=== PATIENT | male | born 1950 | race Caucasian/White ===

== ENCOUNTER 2019-12-07 14:31 | Emergency (ER) | payer BC ==
[2019-12-07 14:43] VITALS: BMI 29.0
[2019-12-07] MEDS ORDERED: SODIUM CHLORIDE 1,000 ML IV STA (14:47)
--- NOTE | 2019-12-07 14:47 | PDOC ---
Rapid Medical Evaluation Chief Complaint: Pain Time Seen by Provider: 12/07/19 14:46 Medical Evaluation: Allergies Allergy/AdvReac Type Severity Reaction Status Date / Time No Known Allergies Allergy Verified 12/07/19 14:43 Vital Signs Temp Pulse Resp BP Pulse Ox 98.8 F 67 18 140/79 97 12/07/19 14:40 12/07/19 14:40 12/07/19 14:40 12/07/19 14:40 12/07/19 14:40 12/07/19 14:46 I have performed a brief in-person evaluation of this patient. CC: sudden onset RLQ pain PE: RLQ tenderness. No guarding. Orders: labs, urine, CTAP Patient will proceed to ED for further evaluation. Discharge Disposition - Diagnosis RLQ abdominal pain - Referrals - Patient Instructions - Post Discharge Activity
[2019-12-07] MEDS ORDERED: ACETAMINOPHEN 1000 MG/100 ML VIAL (NON FORMULARY) IVPB ONE (14:48)
[2019-12-07 15:24] LABS: BASO % 0.8 % (0-2.0); EOS % 2.4 % (0-4.5); HEMATOCRIT 48.9 % (35.4-49); LYMPH % 19.6 % (8-40); MCH 30.1 pg (25.7-33.7); MCHC 32.8 g/dl (32.0-35.9); MEAN CELL VOLUME 91.9 fl (80-96); MEAN PLT VOLUME 8.9 fl (7.5-11.1); MONO % 7.1 % (3.8-10.2); NEUT % 70.1 % (42.8-82.8); PLATELET COUNT 198 K/MM3 (134-434); RBC 5.32 M/mm3 (4.00-5.60); RDW 14.8 % (11.9-15.9); URINE APPEARANCE CLEAR; URINE BILIRUBIN NEGATIVE (NEGATIVE); URINE COLOR YELLOW; URINE GLUCOSE (UA) NEGATIVE (NEGATIVE); URINE KETONE NEGATIVE (NEGATIVE); URINE LEUK ESTERASE NEGATIVE (NEGATIVE); URINE NITRITE NEGATIVE (NEGATIVE); URINE PROTEIN NEGATIVE (NEGATIVE); URINE UROBILINOGEN 0.2 mg/dL (0.2-1.0); WHITE BLOOD COUNT 11.2 K/mm3 (4.0-10.0)
[2019-12-07 15:51] LABS: ALBUMIN 3.9 g/dl (3.4-5.0); BILIRUBIN,TOTAL 0.9 mg/dL (0.2-1); BLOOD UREA NITROGEN 16.8 mg/dL (7-18); CALCIUM 9.5 mg/dL (8.5-10.1); CREATININE 0.9 mg/dL (0.55-1.3); POTASSIUM 4.2 mmol/L (3.5-5.1); TOT PROT 7.5 g/dl (6.4-8.2)
[2019-12-07] MEDS ORDERED: ACETAMINOPHEN INJECTION 100 ML IVPB ONE (16:05)
--- NOTE | 2019-12-07 16:18 | PDOC ---
History of Present Illness - General Chief Complaint: Pain Stated Complaint: LOWER ABD PAIN Time Seen by Provider: 12/07/19 14:46 - History of Present Illness Initial Comments: 12/07/19 17:00 HPI: This is a 69 y/o male with no reported PMH and a hx of hernia surgery presenting to the ED because of right lower abdominal pain this morning. [place] the [place] and he reported a sharp 7/10 non-radiating pain along with diaphoresis. He has never had that pain before, and it passed quickly. He denied any accompanying chest pain, nausea, vomiting, or sob. He denies any hematuria or blood in his stool. ROS: GENERAL/CONSTITUTIONAL: No fever/chills. No weakness. HEAD, EYES, EARS, NOSE AND THROAT: No change in vision. No sore throat. CARDIOVASCULAR: No chest pain or shortness of breath. RESPIRATORY: No cough, wheezing, or hemoptysis. GASTROINTESTINAL: No nausea, vomiting, diarrhea or constipation. Denies blood in stool. GENITOURINARY: No dysuria, frequency, or change in urination. Denies hematuria. MUSCULOSKELETAL: No joint or muscle swelling or pain. No neck or back pain. ENDOCRINE: No increased thirst. No abnormal weight change. HEMATOLOGIC/LYMPHATIC: No anemia, easy bleeding, or history of blood clots. ALLERGIC/IMMUNOLOGIC: No hives or skin allergy. PMH: Denied PSx: Hernia surgery Social Hx: Denied tobacco and drugs. Occasional Etoh. Meds: Denied Allergies: Denied PE: GENERAL: Awake, alert, and fully oriented, in no acute distress. Patient laying in his bed, conversational, primarily emirati speaking. HEAD: No signs of trauma EYES: PERRL, EOMI, NECK: Normal ROM, supple LUNGS: Breath sounds equal, clear to auscultation bilaterally. No wheezes, and no crackles HEART: Regular rate and rhythm, normal S1 and S2, no murmurs, rubs or gallops ABDOMEN: Soft, nontender, normoactive bowel sounds. No guarding, no rebound. No masses EXTREMITIES: Normal range of motion, no edema. No clubbing or cyanosis. No co rds, erythema, or tenderness NEUROLOGICAL: Cranial nerves II through XII grossly intact. Normal speech, normal gait Past History - Medical History Allergies/Adverse Reactions: Allergies Allergy/AdvReac Type Severity Reaction Status Date / Time No Known Allergies Allergy Verified 12/07/19 14:43 COPD: No Other medical history: DENIES - Psycho-Social/Smoking History Smoking History: Never smoked Have you smoked in the past 12 months: No Information on smoking cessation initiated: No - Substance Abuse Hx (Audit-C & DAST Scrn) How often the patient has a drink containing alcohol: Never Score: In Men: 4 or > Positive; In Women: 3 or > Positive: 0 Screen Result (Pos requires Nsg. Audit-10AR): Negative In the last yr the pt used illegal drug/Rx for NonMed reason: No Score: Yes response is considered Positive: 0 Screen Result (Positive result requires Nsg. DAST-10): Negative *Physical Exam - Vital Signs Last Vital Signs Temp Pulse Resp BP Pulse Ox 98.8 F 67 18 140/79 97 12/07/19 14:40 12/07/19 14:40 12/07/19 14:40 12/07/19 14:40 12/07/19 14:40 Heart Score/ECG Review - ECG Intrepretation Comment:: EKG with sinus bradycardia. Vent rate 57bpm, SC interval 182ms, QRS 90ms, QT/QTc 402/391 12/07/19 17:13 ED Treatment Course - LABORATORY CBC & Chemistry Diagram: 12/07/19 15:11 12/07/19 15:11 - ADDITIONAL ORDERS Additional order review: Laboratory Results 12/07/19 12/07/19 15:11 15:11 Sodium 140 Potassium 4.2 Chloride 106 Carbon Dioxide 28 Anion Gap 5 L BUN 16.8 Creatinine 0.9 Est GFR (CKD-EPI)AfAm 99.24 Est GFR (CKD-EPI)NonAf 85.63 Random Glucose 87 Calcium 9.5 Total Bilirubin 0.9 AST 31 ALT 45 Alkaline Phosphatase 59 Total Protein 7.5 Albumin 3.9 Lipase 84 Urine Color Yellow Urine Appearance Clear Urine pH 5.0 Ur Specific [place] 1.019 Urine Protein Negative Urine Glucose (UA) Negative Urine Ketones Negative Urine Blood Negative Urine Nitrite Negative Urine Bilirubin Negative Urine Urobilinogen 0.2 Ur Leukocyte Esterase Negative 12/07/19 15:11 RBC 5.32 MCV 91.9 MCHC 32.8 RDW 14.8 MPV 8.9 Neutrophils % 70.1 Lymphocytes % 19.6 Monocytes % 7.1 Eosinophils % 2.4 Basophils % 0.8 Medical Decision Making - Medical Decision Making 12/07/19 17:15 This is a 69 y/o male with no reported PMH and a hx of hernia surgery presenting to the ED because of right lower abdominal pain this morning. He describes the pain as sudden and sharp, and has never felt it before. Nephrolithiasis vs appendicitis vs AAA - No nausea or vomiting so pancreatitis less likely Urine Test Results Urine Color Yellow 12/07/19 15:11 Urine Appearance Clear 12/07/19 15:11 Urine pH 5.0 (5.0-8.0) 12/07/19 15:11 Ur Specific [place] 1.019 (1.010-1.035) 12/07/19 15:11 Urine Protein Negative (NEGATIVE) 12/07/19 15:11 Urine Glucose (UA) Negative (NEGATIVE) 12/07/19 15:11 Urine Ketones Negative (NEGATIVE) 12/07/19 15:11 Urine Blood Negative (NEGATIVE) 12/07/19 15:11 Urine Nitrite Negative (NEGATIVE) 12/07/19 15:11 Urine Bilirubin Negative (NEGATIVE) 12/07/19 15:11 Ur Leukocyte Esterase Negative (NEGATIVE) 12/07/19 15:11 Urine is negative for infection or hematuria CBC,CMP WBC 11.2 K/mm3 (4.0-10.0) H 12/07/19 15:11 RBC 5.32 M/mm3 (4.00-5.60) 12/07/19 15:11 Hgb 16.0 GM/dL (11.7-16.9) 12/07/19 15:11 Hct 48.9 % (35.4-49) 12/07/19 15:11 MCV 91.9 fl (80-96) 12/07/19 15:11 MCH 30.1 pg (25.7-33.7) 12/07/19 15:11 MCHC 32.8 g/dl (32.0-35.9) 12/07/19 15:11 RDW 14.8 % (11.9-15.9) 12/07/19 15:11 Plt Count 198 K/MM3 (134-434) 12/07/19 15:11 MPV 8.9 fl (7.5-11.1) 12/07/19 15:11 Absolute Neuts (auto) 7.9 K/mm3 (1.5-8.0) 12/07/19 15:11 Neutrophils % 70.1 % (42.8-82.8) 12/07/19 15:11 Lymphocytes % 19.6 % (8-40) 12/07/19 15:11 Monocytes % 7.1 % (3.8-10.2) 12/07/19 15:11 Eosinophils % 2.4 % (0-4.5) 12/07/19 15:11 Basophils % 0.8 % (0-2.0) 12/07/19 15:11 Nucleated RBC % 0 % (0-0) 12/07/19 15:11 Sodium 140 mmol/L (136-145) 12/07/19 15:11 Potassium 4.2 mmol/L (3.5-5.1) 12/07/19 15:11 Chloride 106 mmol/L (98-107) 12/07/19 15:11 Carbon Dioxide 28 mmol/L (21-32) 12/07/19 15:11 Anion Gap 5 MMOL/L (8-16) L 12/07/19 15:11 BUN 16.8 mg/dL (7-18) 12/07/19 15:11 Creatinine 0.9 mg/dL (0.55-1.3) 12/07/19 15:11 Est GFR (CKD-EPI)AfAm 99.24 12/07/19 15:11 Est GFR (CKD-EPI)NonAf 85.63 12/07/19 15:11 Random Glucose 87 mg/dL (74-106) 12/07/19 15:11 Calcium 9.5 mg/dL (8.5-10.1) 12/07/19 15:11 Total Bilirubin 0.9 mg/dL (0.2-1) 12/07/19 15:11 AST 31 U/L (15-37) 12/07/19 15:11 ALT 45 U/L (13-61) 12/07/19 15:11 Alkaline Phosphatase 59 U/L (45-117) 12/07/19 15:11 Total Protein 7.5 g/dl (6.4-8.2) 12/07/19 15:11 Albumin 3.9 g/dl (3.4-5.0) 12/07/19 15:11 Lipase 84 U/L (73-393) 12/07/19 15:11 12/07/19 18:24 Impression: Extensive colonic diverticulosis is noted without CT evidence of acute diverticulitis. A 4 mm right ureterovesical junction calculus is seen with resultant mild hydronephrosis. A 3 mm calculus is noted probably within the left ureterovesical junction and less likely within the urinary bladder lumen immediately adjacent to the ureterovesical junction. There is no definite associated hydronephrosis. In regards to this calculus supplemental imaging consisting of pelvic CT obtained in a prone position may be performed to distinguish between these possibilities. Probable diffuse hepatic steatosis. If clinically indicated correlate with sonography. Small bilateral inguinal hernias containing fat only. Patients symptoms most likely secondary to nephrolithiasis. Patient has been without pain during his entire ED stay. Renal function is normal. No evidence of infection. Patient can follow-up with urology. Discharge - Discharge Information Problems reviewed: Yes Clinical Impression/Diagnosis: Nephrolithiasis, Renal colic on right side, Abdominal pain, Hydronephrosis Condition: Improved Disposition: HOME - Admission No - Follow up/Referral Referrals: Deion Olivares MD [Staff Physician] - - Patient Discharge Instructions Patient Printed Discharge Instructions: Kidney Stones -- Adult Additional Instructions: You were seen today in the Emergency Department for right lower quadrant pain. You were given a physical exam, labs were drawn, and there was a urinalysis. These were all normal. Your kidney function is fine. Your urine was not infected. A CAT scan of your abdomen showed a kidney stone on your right side. You were given a referral for a urologist. Please follow up. Return to the ED if you develop a fever, increased pain, vomiting, or other new or worsening symptoms. Usted fue visto hoy en el [facility] por dolor en el cuadrante inferior derecho. Le hicieron un examen fsico, le hicieron exmenes de laboratorio y le hicieron un anlisis de orina. Todo esto era normal. Tu funcin renal est linda. Tu orina no estaba infectada. [place] tomografa computarizada de null abdomen mostr un clculo renal en null lado derecho. Le dieron geneva referencia para un urlogo. Por favor sigue. Regrese al servicio de urgencias si presenta fiebre, aumento del dolor, vmitos u otros sntomas nuevos o que empeoran. Print Language: KENYAN - Post Discharge Activity
[2019-12-07 18:04] VITALS: BP 115/71; PULSE 56; TEMP 97.5
--- NOTE | 2019-12-07 18:47 | PDOC ---
Documentation entered by Arielle Mckinnon SCRIBE, acting as scribe for Evita Sapp MD. Evita Sapp MD: This documentation has been prepared by the mahendraibeIno Ana, SCRIBE, under my direction and personally reviewed by me in its entirety. I confirm that the documentation accurately reflects all work, treatment, procedures, and medical decision making performed by me. Attending Attestation - Resident Resident Name: Annabelle Swartz - ED Attending Attestation I have performed the following: I have examined & evaluated the patient, The case was reviewed & discussed with the resident, I agree w/resident's findings & plan, Exceptions are as noted - HPI HPI: 12/07/19 17:21 Patient is a 69 year old female with a significant past medical history of hernia surgery who presents to the ED with right sided flank pain that lasted between 11-1145am. Pain was sharp, 7/10 non radiating and made the patient double over while he was at the bank. The pain resolved after 45mins. No associated N/V, urinary sxs, hematuria, CP, SOB, bloody stool. DEnies recent fevers/chills. At this time, pt is completely asymptomatic. Denies hx similar sxs. Denies headache, dizziness, focal weakness/numbness. Allergies: NKDA - Physicial Exam PE: 12/07/19 18:39 GENERAL: Awake, alert, and fully oriented, in no acute distress. Very well appearing HEAD: No signs of trauma EYES: PERRLA, EOMI, sclera anicteric, conjunctiva clear ENT: Auricles normal inspection, hearing grossly normal, nares patent, oropharynx clear without exudates. Moist mucosa NECK: Normal ROM, supple, no lymphadenopathy, JVD, or masses LUNGS: Breath sounds equal, clear to auscultation bilaterally. No wheezes, and no crackles HEART: Regular rate and rhythm, normal S1 and S2, no murmurs, rubs or gallops ABDOMEN: Soft, nontender, normoactive bowel sounds. No guarding, no rebound. No masses EXTREMITIES: Normal range of motion, no edema. No clubbing or cyanosis. No cords, erythema, or tenderness NEUROLOGICAL: Normal speech, cranial nerves intact, negative pronator drift, 5/5 strength in all 4 extremities, normal sensation to light touch in all 4 extremities, normal cerebellar exam, normal gait, normal reflexes and tone SKIN: Warm, Dry, normal turgor, no rashes or lesions noted. 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 I answered all of the patient's questions. The patient was satisfied with the care received and felt comfortable with the discharge plan and treatment plan. The patient will call their primary care physician within 24 hours to arrange follow-up and will return to the Emergency Department with any new, persistent or worsening symptoms. Discharge - Discharge Information Problems reviewed: Yes Clinical Impression/Diagnosis: Renal colic on right side, Abdominal pain, Hydronephrosis Condition: Improved Disposition: HOME - Admission No - Follow up/Referral - Patient Discharge Instructions - Post Discharge Activity
--- NOTE | 2019-12-08 10:35 | EKG ---
Test Reason : Blood Pressure : / mmHG Vent. Rate : 057 BPM Atrial Rate : 057 BPM P-R Int : 182 ms QRS Dur : 090 ms QT Int : 402 ms P-R-T Axes : 052 -15 039 degrees QTc Int : 391 ms SINUS BRADYCARDIA OTHERWISE NORMAL ECG NO PREVIOUS ECGS AVAILABLE Confirmed by STEPHANY SHARMA MD ([id number]) on 12/08/2019 10:35:04 AM Referred By: Confirmed By:STEPHANY SHARMA MD
== END 2019-12-07 18:44 | disposition home or self-care (01) ==
LOC: JER 14:31
DX: N20.0 Calculus of kidney (principal); R10.9 Unspecified abdominal pain; N13.30 Unspecified hydronephrosis
CPT/HCPCS: 36415; 74177-TC; 80053; 81003; 83690; 85025; 87086; 93005; 93010; 99285-25; J0131; Q9967